=== PATIENT | male | born 2000 | race Caucasian/White ===

== ENCOUNTER 2021-03-05 08:49 | Emergency (ER) | payer MEDICAID ==
[~2021-03-05] VITALS: Ht 175.3 cm; Wt 63.0 kg
[2021-03-05] MEDS ORDERED: KETOROLAC 15MG/ML VIAL IM ONE (09:15)
[2021-03-05] MEDS ORDERED: IBUP-2028 MT (09:16)
[2021-03-05 09:27] VITALS: BP 112/74
== END 2021-03-05 09:27 | disposition home or self-care (01) ==
LOC: ER 08:49
DX: M54.5 Low back pain (principal); F12.10 Cannabis abuse, uncomplicated
CPT/HCPCS: 96372; 99283; J1885